=== PATIENT | female | born 1990 | race Two or more races ===

== ENCOUNTER 2024-12-14 18:32 | Emergency (ER) | payer MEDICAID, OTHER ==
[~2024-12-14] VITALS: Ht 167.6 cm; Wt 80.4 kg
[2024-12-14 19:27] LABS: Hematocrit 40.7 % (36.0-46.0); Hemoglobin 14.2 g/dL (12.2-16.2); Mean Corpuscular Hemoglobin 33.4 pg (28.0-32.0); Mean Corpuscular Volume 95.9 fL (80.0-100.0); Nucleated Red Blood Cells % 0.1 %
[2024-12-14 19:37] LABS: Chloride 104 mmol/L (98-107); Potassium 3.7 mmol/L (3.5-5.1); Sodium 138 mmol/L (136-145)
[2024-12-14 19:38] LABS: Anion Gap 8 (5-15); Carbon Dioxide 26 mmol/L (20-31)
[2024-12-14 19:43] LABS: BUN/Creatinine Ratio 10.4 (10.0-20.0); Blood Urea Nitrogen 10 mg/dL (9-23); Glucose 86 mg/dL (74-106)
[2024-12-14 19:44] LABS: Calcium 10.5 mg/dL (8.7-10.4); INR 0.97 (0.9-1.15); Partial Thromboplastin Time 27.7 SEC (24.5-34.5); Prothrombin Time 10.3 sec (9.3-11.8)
--- NOTE | 2024-12-14 19:57 | ED.PDOC ---
[employer] HPI Comments 34 year old female came to ER due to vaginal bleeding. Patient is , about 3- 4 weeks by LMP. Has been having vaginal spotting for 2 weeks, denies any fever, nausea, vomiting or abdominal pain. Went to Urgent Care earlier and she tested positive for . Chief Complaint: Vaginal Bleed Time Seen by MD: 19:56 Reviewed Notes: Nurses Notes Information Source: Patient Mode of Arrival: Ambulatory Timing: Days Prehospital treatment: None Severity: Mild Bleeding Quality: Bright Red Sexual Activity: Last Consensual [place]: Unknown History of: Current Associated Signs and Symptoms: Vaginal Bleeding Past Medical History PAST MEDICAL HISTORY: Denies Surgical History: Denies all surgeries 3 Para 1 AB 1 LMP November 23, 2024 Family History Family History: Reviewed,noncontributory to illness Social History Smoker: Non-Smoker Alcohol: Denies ETOH Use Drugs: Denies Drug Use Lives In: Home Constitutional: denies: chills, diaphoresis, fatigue, fever, malaise, sweats, weakness, others EENTM: denies: blurred vision, double vision, ear bleeding, ear discharge, ear drainage, ear pain, ear ringing, eye pain, eye redness, hearing loss, mouth pain, mouth swelling, nasal discharge, nose bleeding, nose congestion, nose pain, photophobia, tearing, throat pain, throat swelling, voice changes, others Respiratory: denies: cough, hemoptysis, orthopnea, SOB at rest, shortness of breath, SOB with excertion, stridor, wheezing, others Cardiovascular: denies: chest pain, dizzy spells, diaphoresis, Dyspnea on exertion, edema, irregular heart beat, left arm pain, lightheadedness, palpitations, PND, syncope, others Gastrointestinal: denies: abdomen distended, abdominal pain, blood streaked bowels, constipated, diarrhea, dysphagia, difficulty swallowing, hematemesis, melena, nausea, poor appetite, poor fluid intake, rectal bleeding, rectal pain, vomiting, others Genitourinary: reports: abnormal vagina bleeding; denies: burning, dyspareunia, dysuria, flank pain, frequency, hematuria, incontinence, pain, , vagina discharge, urgency, others Neurological: denies: dizziness, fainting, headache, left sided numbness, left sided weakness, numbness, paresthesia, pre-existing deficit, right sided numbness, right sided weakness, seizure, speech problems, tingling, tremors, weakness, others Musculoskeletal: denies: back pain, gout, joint pain, joint swelling, muscle pain, muscle stiffness, neck pain, others Integumetry: denies: bruises, change in color, change in hair/nails, dryness, laceration, lesions, lumps, rash, wounds, others Allergic/Immunocompromised: denies: Difficulty Healing, Frequent Infections, Hives, Itching, others Hematologic/Lymphatic: denies: anemia, blood clots, easy bleeding, easy bruising, swollen glands, others Endocrine: denies: excessive hunger, excessive sweating, excessive thirst, excessive urination, flushing, intolerance to cold, intolerance to heat, unexplained weight gain, unexplained weight loss, others Psychiatric: denies: anxiety, bipolar disorder, depression, hopeless, panic disorder, schizophrenia, sleepless, suicidal, others Physical Exam General Appearance: No Apparent Distress HEENT: Other (Pupils and face symmetric. Moist mucous membranes.) Neck: Full Range of Motion, Normal Inspection Respiratory: Lungs Clear, No Accessory Muscle Use, No Respiratory Distress, Normal Breath Sounds Cardiovascular: No Edema, No JVD, Regular Rate/Rhythm Breast Exam: Deferred Gastrointestinal: Non Tender, Soft Genitalia: Deferred Pelvic: Deferred Rectal: Deferred Extremities: Normal inspection, Normal range of motion, Non-tender, No pedal edema Neurologic: Alert (Oriented x4), Normal Affect, Normal Mood, Other (Ambulatory) Cerebellar Function: NOT DONE Reflexes: NOT DONE Skin: Dry, Normal Color, Warm Lymphatic: NOT DONE Was a procedure done? Was a procedure done?: No Differential Diagnosis ([facility]) Vaginal Bleeding: - Missed, - Threatened, Blood Loss Anemia, Ectopic , UTI Vaginal Discharge: X-Ray, Labs, Meds, VS Vital Signs Date Time Temp Pulse Resp B/P (MAP) Pulse Ox O2 Delivery O2 Flow Rate FiO2 12/14/24 20:50 77 18 98 Room Air 12/14/24 20:50 98.9 77 18 150/78 (102) 99 98.9 12/14/24 19:00 98.4 78 18 136/73 (94) 100 98.4 Lab Test 12/14/24 20:07 12/14/24 19:07 Range/Units Urine Color Light-yellow Yellow Urine Clarity Clear Clear Urine pH 5.5 5.0-9.0 Urine Specific [place] 1.017 1.001-1.035 Urine Protein Negative Negative Urine Ketones Trace Negative Urine Blood 3+ H Negative /uL Urine Nitrite Negative Negative Urine Bilirubin Negative Negative Urine Urobilinogen Normal Negative mg/dL Urine Leukocyte Esterase 2+ Negative /uL Urine RBC 6 0 - 4 /hpf Urine Microscopic WBC 1 0-5 /HPF Urine Squamous Epithelial Cells Few <5 /hpf Urine Bacteria None seen None Seen /hpf Urine Hyaline Casts Few 0 - 2 /lpf Urine Glucose Normal Normal mg/dL Urine Test Positive Negative White Blood Count 6.2 4.4-10.8 10^3/uL Red Blood Count 4.24 4.0-5.20 10^6/uL Hemoglobin 14.2 12.2-16.2 g/dL Hematocrit 40.7 36.0-46.0 % Mean Corpuscular Volume 95.9 80.0-100.0 fL Mean Corpuscular Hemoglobin 33.4 H 28.0-32.0 pg Mean Corpuscular Hemoglobin Concent 34.9 32.0-36.0 g/dL Red Cell Distribution Width 12.7 11.8-14.3 % Platelet Count 179 140-450 10^3/uL Mean Platelet Volume 8.7 6.9-10.8 fL Neutrophils (%) (Auto) 48.6 37.0-80.0 % Lymphocytes (%) (Auto) 42.5 10.0-50.0 % Monocytes (%) (Auto) 7.8 0.0-12.0 % Eosinophils (%) (Auto) 0.6 0.0-7.0 % Basophils (%) (Auto) 0.5 0.0-2.0 % Neutrophils # (Auto) 3.0 1.6-8.6 10 ^3/uL Lymphocytes # (Auto) 2.6 0.4-5.4 10 ^3/uL Monocytes # (Auto) 0.5 0-1.3 10 ^3/uL Eosinophils # (Auto) 0 0-0.8 10 ^3/uL Basophils # (Auto) 0 0-0.2 10 ^3/uL Nucleated Red Blood Cells 0.1 % Prothrombin Time 10.3 9.3-11.8 sec Prothrombin Time INR 0.97 0.9-1.15 Activated Partial Thromboplast Time 27.7 24.5-34.5 SEC Sodium Level 138 136-145 mmol/L Potassium Level 3.7 3.5-5.1 mmol/L Chloride Level 104 98-107 mmol/L Carbon Dioxide Level 26 20-31 mmol/L Anion Gap 8 5-15 Blood Urea Nitrogen 10 9-23 mg/dL Creatinine 0.96 0.550-1.02 mg/dL Glomerular Filtration Rate Calc 79 >90 mL/min BUN/Creatinine Ratio 10.4 10.0-20.0 Serum Glucose 86 74-106 mg/dL Calcium Level 10.5 H 8.7-10.4 mg/dL Beta HCG, Quantitative 15899.0 H 1.5-4.2 mIU/mL INDICATION: vaginal bleeding TECHNIQUE: Multiple real-time grayscale transabdominal sonographic images along with color and duplex Doppler of the uterus and ovaries were obtained. COMPARISON: None FINDINGS: The uterus measures 7.85 x 5.4 x 4.95 cm. The endometrial stripe contains a gestational sac. 2.2 x 1.4 7 x 2.3 cm heterogeneous mass lower uterine segment anterior wall most likely represents a fibroid. The right ovary measures 3.45 x 2.52 by 2.5 cm. Right ovarian volume is 11.8 cc. A non anechoic lesion in the right ovary measuring 1.56 x 1.88 x 1.53 cm. The left ovary is not visualized. Subsequent color and duplex Doppler interrogation of the ovaries demonstrated symmetric vascular flow to both ovaries, though this does not exclude the possibility of torsion due to the dual blood supply. There is a 1.56 cm cystic area in the endometrial canal with no yolk sac. No pole is seen. There is no heart rate. Recommend follow-up study to evaluate for developing IUP. IMPRESSION: 1. 1.56 cm cystic area in the endometrial canal. No pole no artery. Recommend follow-up study to evaluate for developing IUP. X-Ray, Labs, Meds, VS Comment 34-year-old female with current recently diagnosed complaining of vaginal spotting Vitals unremarkable Exam unremarkable Rhythm strip independently interpreted by me: Sinus rhythm, rate 88, no ectopy. Ob ultrasound IMPRESSION: 1. 1.56 cm cystic area in the endometrial canal. No pole no artery. Recommend follow-up study to evaluate for developing IUP. CBC, basic metabolic panel, coag panel and UA unremarkable. Serum quantitative hCG 73961 On re-evaluation, patient was asymptomatic with stable vitals. Patient's appears stable for discharge with close outpatient follow-up with OBGYN for repeat serum quantitative hCG and repeat ultrasound. Time of 1ST Reevaluation: 19:53 Reevaluation 1ST: Unchanged Patient Education/Counseling: Diagnosis, Treatment Family Education/Counseling: Diagnosis, Treatment Departure 1 Departure Time of Disposition: 20:08 Impression: Primary Impression: Vaginal bleeding affecting early Disposition: 01 HOME / SELF CARE / HOMELESS Condition: Stable Referrals: OLIVIA HERNANDEZ DO Additional Instructions: Your blood tests were unremarkable. [place] [address], c orrelating with a 4-5 week . Your ultrasound did not show a . It may be too early to visualize a with ultrasound. Follow-up with DEIDRA Grant for repeat hormone level and repeat ultrasound. No treatment is needed at this time. Return to ER for heavy bleeding, fever, pain or any other concern. [place] [id number] Ph: [phone] DIAGNOSTIC IMAGING Diagnostic Imaging Report : [id number] Signed PATIENT: ALBERTO PARR ACCT: [id number] UNIT: [id number] : 1990 LOC: ER ROOM / BED: / AGE / SEX: 34 / F ADM STATUS: REG ER SERVICE 31 ORDERING PHYSICIAN: GENIA CLINTON MD PROCEDURE(s): OB4US - OB ULTRASOUND COMP LESS 14WKS REASON: vaginal bleeding ORDER NUMBER(s): [id number], ACCESSION NUMBER(s): [id number] INDICATION: vaginal bleeding TECHNIQUE: Multiple real-time grayscale transabdominal sonographic images along with color and duplex Doppler of the uterus and ovaries were obtained. COMPARISON: None FINDINGS: The uterus measures 7.85 x 5.4 x 4.95 cm. The endometrial stripe contains a gestational sac. 2.2 x 1.4 7 x 2.3 cm heterogeneous mass lower uterine segment anterior wall most likely represents a fibroid. The right ovary measures 3.45 x 2.52 by 2.5 cm. Right ovarian volume is 11.8 cc. A non anechoic lesion in the right ovary measuring 1.56 x 1.88 x 1.53 cm. The left ovary is not visualized. Subsequent color and duplex Doppler interrogation of the ovaries demonstrated symmetric vascular flow to both ovaries, though this does not exclude the possibility of torsion due to the dual blood supply. There is a 1.56 cm cystic area in the endometrial canal with no yolk sac. No pole is seen. There is no heart rate. Recommend follow-up study to evaluate for developing IUP. IMPRESSION: 1. 1.56 cm cystic area in the endometrial canal. No pole no artery. Recommend follow-up study to evaluate for developing IUP. Discharged With: Spouse Critical Care Note Critical Care Time?: No Stability Stability form required: No Heart Score Heart Score: Heart Score Response (Comments) Value History N/A 0 EKG N/A 0 Age N/A 0 Risk Factors N/A 0 Troponin N/A 0 Total 0 I personally scribed for GENIA CLINTON MD ([email or web address]) on 12/14/24 at 19:57. Electronically submitted by [facility] (FELICITASJO ANN). I personally scribed for GENIA CLINTON MD ([email or web address]) on 12/14/24 at 21:14. Electronically submitted by [facility] ([email or web address] ANN). GENIA CLINTON MD Dec 14, 2024 19:57
--- NOTE | 2024-12-14 21:01 | DVH ---
INDICATION: vaginal bleeding TECHNIQUE: Multiple real-time grayscale transabdominal sonographic images along with color and duplex Doppler of the uterus and ovaries were obtained. COMPARISON: None FINDINGS: The uterus measures 7.85 x 5.4 x 4.95 cm. The endometrial stripe contains a gestational sac . 2.2 x 1.4 7 x 2.3 cm heterogeneous mass lower uterine segment anterior wall most likely represents a fibroid. The right ovary measures 3.45 x 2.52 by 2.5 cm. Right ovarian volume is 11.8 cc. A non anechoic lesi on in the right ovary measuring 1.56 x 1.88 x 1.53 cm. The left ovary is not visualized. Subsequent color and duplex Doppler interrogation of the ovaries demonstrated symmetric vascular flow to both ovaries, though this does not exclude the possibility of torsion due to the dual blood suppl y. There is a 1.56 cm cystic area in the endometrial canal with no yolk sac. No pole is seen. Ther e is no heart rate. Recommend follow-up study to evaluate for developing IUP. IMPRESSION: 1. 1.56 cm cystic area in the endometrial canal. No pole no artery. Recommend follow-up laverne francois to evaluate for developing IUP.
[2024-12-14 21:29] LABS: Urine Protein, UAD Negative (Negative)
[2024-12-14 22:39] VITALS: BP 145/91; PULSE 83; RESP 18; TEMP 97.5; O2SAT 99
== END 2024-12-14 22:40 | disposition home or self-care (01) ==
LOC: ER 18:32
DX: O20.0 Threatened abortion (principal); Z3A.01 Less than 8 weeks gestation of pregnancy
CPT/HCPCS: 36415; 76801; 76817; 80048; 81001; 81025; 84702; 85025; 85610; 85730

== ENCOUNTER 2025-05-27 07:56 | Outpatient (CLI) | payer MEDICAID ==
[2025-05-27 08:27] LABS: Hematocrit 34.7 % (36.0-46.0); Hemoglobin 12.1 g/dL (12.2-16.2); Mean Corpuscular Hemoglobin 33.0 pg (28.0-32.0); Mean Corpuscular Volume 94.7 fL (80.0-100.0); Nucleated Red Blood Cells % 0.0 %
== END 2025-05-27 17:00 | disposition home or self-care (01) ==
LOC: LAB 07:56
PROVIDERS: ATTEND Obstetrics & Gynecology
DX: Z34.80 Encounter for supervision of other normal pregnancy, unspecified trimester (principal); Z3A.00 Weeks of gestation of pregnancy not specified
CPT/HCPCS: 36415; 82951; 83036; 85025; 87086